=== PATIENT | male | born 1975 | race Caucasian/White ===

== ENCOUNTER → 2017-06-16 | Outpatient (CLI) | payer OTHER ==
[~2017-06-16] VITALS: Ht 177.8 cm; Wt 83.9 kg
[~2017-06-16] MED LIST: ALLERGY10 M1 PO; NOHOMEMEDS; PROAIR RESPICL90 MCG IH
== END | disposition home or self-care (01) ==
LOC: AMB 11:10
DX: K20.8 Other esophagitis (principal); K44.9 Diaphragmatic hernia without obstruction or gangrene; K25.9 Gastric ulcer, unspecified as acute or chronic, without hemorrhage or perforation; K64.8 Other hemorrhoids; K62.5 Hemorrhage of anus and rectum; R10.13 Epigastric pain; R14.0 Abdominal distension (gaseous); Z80.0 Family history of malignant neoplasm of digestive organs; J45.909 Unspecified asthma, uncomplicated; Z80.42 Family history of malignant neoplasm of prostate
CPT/HCPCS: 88305; 88342 TC; J1100; J2405